=== PATIENT | female | born 1955 | race Caucasian/White ===

== ENCOUNTER 2017-07-27 13:00 | Emergency (ER) | payer OTHER ==
[2017-07-27 13:38] LABS: ADD MAN DIFF? NO
[2017-07-27 13:39] LABS: BASOPHILS % 0.4 % (0.0-2.0); EOSINOPHILS # 0.1 10^3/ul (0.0-0.5); HEMATOCRIT 43.5 % (37.0-47.0); HEMOGLOBIN 14.2 g/dl (12.0-16.0); LYMPHOCYTES # 2.2 10^3/ul (0.8-2.9); LYMPHOCYTES % 31.6 % (15.0-51.0); MEAN CORPUSCULAR HEMOGLOBIN 30.3 pg (29.0-33.0); MEAN CORPUSCULAR HGB CONC 32.6 g/dl (32.0-37.0); MEAN CORPUSCULAR VOLUME 92.9 fl (82.0-101.0); MEAN PLATELET VOLUME 11.2 fl (7.4-10.4); MONOCYTE # 0.4 10^3/ul (0.3-0.9); MONOCYTES % 6.4 % (0.0-11.0); PLATELET COUNT 242 10^3/UL (140-415); RED BLOOD COUNT 4.68 10^6/ul (4.20-5.40); RED CELL DISTRIBUTION WIDTH 12.6 % (11.5-14.5)
[2017-07-27 13:39] LABS: WHITE BLOOD COUNT 6.9 10^3/ul (4.8-10.8)
[2017-07-27] MEDS: MECLIZINE 12.5 MG TAB PO (13:45)
[2017-07-27] MEDS: SOD CHLORIDE 0.9% 500 ML IV (13:46)
[2017-07-27] MEDS: LORAZEPAM 2 MG INJ IV (13:46)
[2017-07-27 13:57] LABS: ANION GAP 15 (8-16); BLOOD UREA NITROGEN 12 mg/dl (7-20); CALCIUM 9.9 mg/dl (8.4-10.2); CARBON DIOXIDE 26 mmol/L (21-31); CHLORIDE 103 mmol/L (97-110); CREATININE 0.68 mg/dl (0.44-1.00); GLUCOSE 245 mg/dl (70-220); POTASSIUM 4.2 mmol/L (3.5-5.1); SODIUM 140 mmol/L (135-144)
[2017-07-27 14:09] LABS: TROPONIN-I < 0.010 ng/ml (0.000-0.120)
== END 2017-07-27 18:02 | disposition home or self-care (01) ==
LOC: E/R 13:00
DX: I16.0 Hypertensive urgency (principal); H81.399 Other peripheral vertigo, unspecified ear; R73.9 Hyperglycemia, unspecified; I10 Essential (primary) hypertension; R40.2142 Coma scale, eyes open, spontaneous, at arrival to emergency department; R40.2252 Coma scale, best verbal response, oriented, at arrival to emergency department; R40.2362 Coma scale, best motor response, obeys commands, at arrival to emergency department
CPT/HCPCS: 36415; 70450; 71045; 80048; 84484; 85025; 93005; 96374; 99285-25